=== PATIENT | male | born 1960 | race Caucasian/White ===

== ENCOUNTER 2024-12-21 01:07 | Observation (INO) | payer OTHER, SELFPAY ==
[2024-12-20 21:34] VITALS: BP 145/83
--- NOTE | 2024-12-20 22:21 | ED.GENMED ---
History of Present Illness
General
Chief Complaint: Abdominal Symptoms
Source: patient
Exam Limitations: none
Time Seen by Provider: 12/20/24 22:13
History of Present Illness
History of Present Illness:
64-year-old male presents with vomiting and intractable nausea for the past 3 days. He has a history of cannabis hyperemesis syndrome and he feels this is the same. He denies any significant pain. He has tried Zofran without relief. He denies a
fever. He just cannot keep anything down. He is concerned about dehydration. No chest pain or shortness of breath. No other complaints at this time
Past History
Past History
ED Past Medical History: None
ED Past Surgical History: None
Social History
Tobacco: Smoker
Alcohol: None
Personal: Single
Living: with family
Phy Exam
Physical Exam
Physical Exam:
General: Well-appearing male no acute respiratory distress
HEENT normal cephalic atraumatic mucosa dry neck is supple heart: Regular rate and rhythm
Lungs: Clear no wheeze abdomen is soft nontender nondistended
Extremities: No cyanosis or edema
Skin is warm no rash
Course
Orders/Labs/Results
Orders:
Orders
12/20/24 22:18
0.9% Sodium Chloride 1000 ml [Nss] 1,000 ml IV BOLUS
Haloperidol Lactate [Haldol] 2 mg IV NOW STA
12/20/24 22:25
Complete Blood Count/With Diff Urgent
Comprehensive Metabolic Panel Urgent
Lipase Urgent
12/20/24 22:31
EKG [Electrocardiogram (*1)] Urgent
Reason for Study: Fatigue / Weakness
EKG- Treatment ONCE
12/20/24 23:30
0.9% Sodium Chloride 1000 ml [Nss] 1,000 ml IV BOLUS
Diphenhydramine [Benadryl] 25 mg IV NOW STA
Prochlorperazine [Compazine] 10 mg IV NOW STA
Abnormal Lab Results
12/20/24
22:25
WBC 24.5 H 10^3/uL
(4.8-10.8)
Abs Immat Gran (auto) 0.2 H 10^3/uL
(0-0.05)
Absolute Neuts (auto) 22.3 H 10^3/uL
(1.4-6.5)
Absolute Lymphs (auto) 1.1 L 10^3/uL
(1.2-3.4)
Absolute Monos (auto) 0.9 H 10^3/uL
(0.1-0.6)
Immature Gran % 0.6 H %
(0-0.5)
Neutrophils % 91.2 H %
(42.2-75.2)
Lymphocytes % 4.3 L %
(20.5-51.1)
BUN 27 H mg/dl
(9-20)
Glucose 155 H mg/dl
(70-99)
Calcium 10.6 H mg/dl
(8.4-10.2)
Total Bilirubin 1.6 H mg/dl
(0.2-1.3)
Total Protein 8.8 H g/dl
(6.3-8.2)
Albumin 5.4 H g/dl
(3.5-5.0)
12/20/24 22:25
12/20/24 22:25
Vital Signs
Initial and Last Documented VS:
Initial Vital Signs
Pulse Resp BP Pulse Ox
72 16 145/83 98
12/20/24 21:34 12/20/24 21:34 12/20/24 21:34 12/20/24 21:34
Last Documented Vital Signs
Temp Pulse Resp BP Pulse Ox
99.7 F 65 18 143/74 99
12/20/24 22:45 12/20/24 23:33 12/20/24 23:15 12/20/24 23:33 12/20/24 23:15
MDM/Problems Addressed
Differential Diagnosis Includes:
Patient presents with intractable nausea and vomiting for 3 days. Has had this in the past and is similar to his prior episodes of cannabis hyperemesis. Abdomen exam is benign without any reproducible tenderness considered imaging however not
indicated at this point will check labs for electrolyte abnormality or signs of dehydration. Fluids ordered Zofran has not helped him. Will try IV Haldol.
*Pulse Oximetry
SaO2: 98
Oxygen Mode of Delivery: Room air
Patient hypoxic: no
*Critical Care Note
Total Time (30-74mins, 75-104mins- exclusive of procedures): Not Applicable
Update Note
Update Note:
EKG performed for QT monitoring EKG shows normal sinus rhythm with rate of 62 no ischemic changes QTc of 438
Patient's nausea unrelieved with Haldol initially subsequently given Compazine and Benadryl still cannot tolerate water. White blood cell count is 24,000 otherwise electrolytes look okay. Will admit for intractable nausea likely secondary to
cannabis use
ED Attending Note
-
Portions of this chart may have been created with voice recognition software.� Occasional wrong word or��sound alike� substitutions may have occurred due to the inherent limitations of voice recognition software.
Discharge Plan
Departure
Patient Disposition: Admit
Date of Disposition: 12/21/24
Time of Disposition: 00:13
Presentation/result/management discussed w/ accepting MD/DO: Hospitalist
Patient with high blood pressure during this ER visit?: No
Discharge Problem:
Intractable nausea
Prescriptions:
No Action
sucralfate 1 GM/10 ML suspension
1 gm PO QID Qty: 120 0RF
pantoprazole 40 MG tablet,delayed release (DR/EC)
40 mg PO BID Qty: 60 0RF
Referrals:
NONE,* [Family Provider, Internal Medicine]
Interventions
Interventions:
*Risk Screen - Suicide Last Done: 12/20/24 21:34
*General Assessment Last Done: 12/20/24 21:34
*Neglect/Abuse Screening Last Done: 12/20/24 21:34
*ED- Fall Risk Assessment Last Done: 12/20/24 21:34
*ED COVID-19 Vaccine History Last Done: 12/20/24 21:34
*ED Influenza Vaccine History Last Done: 12/20/24 21:34
LP-Ynsdmw-Makqrklnwq Assessment Last Done: 12/20/24 22:45
Discharge Date and Time
Print Language: ICELANDIC
[2024-12-20] MEDS: NSS 1000 IV ×2 (22:28→23:34)
[2024-12-20] MEDS: HALDOL 2 MG IV (22:36)
[2024-12-20 22:40] LABS: Hematocrit 44.0 % (39.0-52.0); Hemoglobin 15.3 g/dL (13.0-18.0); Mean Corp Hgb Conc. 34.8 g/dL (33.0-37.0); Mean Corpuscular Volume 87.1 fL (80.0-94.0); Platelet Count 263 10^3/uL (130-400); Red Cell Dist. Width 13.3 % (11.5-14.5)
[2024-12-20 22:55] LABS: Nucleated Red Blood Cells % 0 % (-)
[2024-12-20 22:57] LABS: ALT (SGPT) 26 U/L (0-50); AST (SGOT) 33 U/L (17-59); Albumin 5.4 g/dl (3.5-5.0); Alkaline Phosphatase 56 U/L (38-126); Blood Urea Nitrogen 27 mg/dl (9-20); Calcium 10.6 mg/dl (8.4-10.2); Carbon Dioxide 28 mmol/L (22-30); Chloride 100 mmol/L (98-107); Glucose 155 mg/dl (70-99); Lipase 298 U/L (23-300); Potassium 3.5 mmol/L (3.5-5.1); Sodium 139 mmol/L (135-145); Total Protein 8.8 g/dl (6.3-8.2); eGFR > 60.00
[2024-12-20 23:33] VITALS: BP 143/74
[2024-12-20] MEDS: COMPAZINE 10 MG IV (23:34)
[2024-12-20] MEDS: BENADRYL 25 MG IV (23:34)
--- NOTE | 2024-12-21 00:59 | HPS.HSE ---
Family Physician
-
Family Physician: * NONE
Chief Complaint
-
N/V
History of Present Illness
Patient is a 64y M with PMH significant for GERD, esophageal stricture who presents to ED complaining of N/V. Patient states that his symptoms started about 3 days ago. He reports intractable N/V with emesis any time he tries to eat or dirnk.
He reports burning pain in the 'esophagus'. He notes that he has also induced emesis intentionally in an effort to alleviate his symptoms. He took Zofran at home without improvement.
Patient has a prior history of GERD, esophagitis and esophageal stricture.
He also has a history of cannabinoid hyperemesis.
Patient admits to continued daily marijuana use.
Medical History
Past Medical History
Past Medical History: Reports Other
Additional Past Medical History:
GERD / Esophagitis
Cannabinoid Hyperemesis
Past Surgical History: Reports Other
Additional Past Surgical History:
Vocal Cord Surgery
Social History
Tobacco: Non-smoker
Alcohol: Occasional (Rarely.)
Drug: Marijuana (Daily use.)
Family History
Family History: Not pertinent
Allergies / Home Medications
Allergies reflects when Allergies were last updated in [facility].
Home Medications with original date entered in [facility]
Allergy/Medication List:
Allergies
Allergy/AdvReac Type Severity Reaction Status Date / Time
No Known Allergies Allergy Verified 12/20/24 21:37
Home Medications
No Meds [No Current Medications] 12/21/24
Review of Systems
-
History Source: Patient
A 12 point ROS was completed and negative except as noted: Yes
Constitutional: Reports Fatigue; Denies Fever or Chills
EENT: Reports Sore Throat
Respiratory: Denies Cough or Trouble Breathing
Cardiac: Reports Chest Pain; Denies Palpitations
Abdomen/GI: Reports Abdominal Pain, Nausea and Vomiting; Denies Diarrhea, Bloody Stools or Black Stools
: Denies Dysuria or Flank Pain
Musculoskeletal: Denies Joint Pain or Edema
Neurological: Denies Dizzy or Headache
Psych: Denies Depression or Anxiety
Physical Exam
Vital Signs
Vital Signs
Temp Pulse Resp BP Pulse Ox
99.7 F 65 18 143/74 99
12/20/24 22:45 12/20/24 23:33 12/20/24 23:15 12/20/24 23:33 12/20/24 23:15
Physical Exam
General: Other (64y M in mild distress due to nausea.)
HEENT: Other (Dry MM. Neck supple.)
Respiratory: Clear; No Wheezes, Rales or Rhonchi
Cardiac: S1/S2 and Regular Rhythm; No Murmur
GI: Other (Soft, no focal tenderness / rebound / guarding. Pos BS.)
Musculoskeletal: No Clubbing, No Cyanosis and No Edema
Neuro: AO x 3
Laboratory Results
-
12/20/24 22:25
12/20/24 22:25
Laboratory Results
Total Bilirubin 1.6 mg/dl (0.2-1.3) H 12/20/24 22:25
AST 33 U/L (17-59) 12/20/24 22:25
ALT 26 U/L (0-50) 12/20/24 22:25
Alkaline Phosphatase 56 U/L (38-126) 12/20/24 22:25
Lipase 298 U/L (23-300) 12/20/24 22:25
Impression/Plan
-
A/P: Patient is a 64y M with PMH significant for GERD / esophagitis and marijuana use disorder who presents to ED complaining of intractable N/V x 3 days.
Cannabinoid Hyperemesis
Leukocytosis secondary to the above
- Observe overnight for further evaluation and treatment.
- Supportive care, antiemetics, IVFs, etc.
- IV PPI.
- Follow for clinical improvement.
- Patient counseled on marijuana cessation to prevent future episodes.
GERD / Esophagitis
- Likely exacerbated by repeated emesis.
- Not on any maintenance therapy, PPI, etc at home.
- Consider GI evaluation if symptoms do not improve with supportive care.
DVT Prophylaxis: SCDs
Code Status: Full
[2024-12-21] MEDS: REGLAN 10 MG IV ×2 (01:32→22:02)
[2024-12-21] MEDS: LR 1000 IV ×4 (01:32→19:27)
[2024-12-21 01:39] VITALS: BMI 19.5
[2024-12-21] MEDS: BENADRYL 25 MG IV ×3 (02:30→23:28)
[2024-12-21] MEDS: ZOFRAN 4 MG IV (02:31)
[2024-12-21] MEDS: VALIUM INJECTION 2.5 MG IV (03:56)
[2024-12-21 06:40] LABS: Hematocrit 35.0 % (39.0-52.0); Hemoglobin 12.3 g/dL (13.0-18.0); Mean Corp Hgb Conc. 35.1 g/dL (33.0-37.0); Mean Corpuscular Volume 90.4 fL (80.0-94.0); Platelet Count 206 10^3/uL (130-400); Red Cell Dist. Width 13.3 % (11.5-14.5)
[2024-12-21 06:57] LABS: Blood Urea Nitrogen 19 mg/dl (9-20); Calcium 8.7 mg/dl (8.4-10.2); Carbon Dioxide 28 mmol/L (22-30); Chloride 108 mmol/L (98-107); Estimated Creatinine Clearance 81 ml/min; Glucose 129 mg/dl (70-99); Magnesium 1.7 mg/dl (1.6-2.3); Potassium 3.3 mmol/L (3.5-5.1); Sodium 138 mmol/L (135-145); eGFR > 60.00
[2024-12-21 07:00] VITALS: BP 114/61
--- NOTE | 2024-12-21 07:43 | W.PN.HOSP.TC ---
Today's Communication/Plan
-
Continue monitoring on telemetry
See plan
Assessment / Plan
Assessment / Plan
Physical Exam
General: Not in acute distress
HEENT: Normocephalic
Respiratory: Clear to Auscultation Bilaterally
Cardiac: S1/S2 and Regular Rhythm
GI: Other (Soft, no focal tenderness / rebound / guarding. Pos BS.)
Musculoskeletal: No Cyanosis and No Edema
Neuro: AAO x 3
Assessment/Plan
64 y/o male with past medical history significant for daily Marijuana use, cannabinoid hyperemesis, GERD, esophagitis and esophageal stricture who presented to [facility] ED complaining of nausea and vomiting. Patient states that his symptoms started
about 3 days prior to presentation. He reported intractable nausea/vomiting with emesis any time he attempted to eat or drink. He reported burning pain in his 'esophagus.' Patient noted that he has also induced emesis intentionally in an effort to
alleviate his symptoms. He took Zofran at home without improvement.
Cannabinoid Hyperemesis
Leukocytosis secondary to the above
- Supportive care, antiemetics, IVFs, etc.
- IV PPI.
- Follow for clinical improvement.
- Patient counseled on marijuana cessation to prevent future episodes.
- Monitor EKG QTc while giving Haldol when needed, can also try Benadryl, Compazine, Reglan
- Try to avoid benzodiazepines or opioids
GERD / Esophagitis
History of Esophageal Stricture
- Likely exacerbated by repeated emesis.
- Not on any maintenance therapy, PPI, etc at home.
- Consider GI evaluation if symptoms do not improve with supportive care.
DVT Prophylaxis: SCDs
Code Status: Full Code
Anticipated Discharge: 24 - 48 hours
Subjective/Interval History
-
Date of Service: December 21, 2024
Patient was seen and examined. He continued with nausea and vomiting as well as heartburn pain.
Objective Data
-
Labs:
Laboratory Results
12/20/24 12/21/24
22:25 06:30
WBC 24.5 H 19.3 H
Hgb 15.3 12.3 L
Hct 44.0 35.0 L
Plt Count 263 206 D
Sodium 139 138
Potassium 3.5 3.3 L
Chloride 100 108 H
Carbon Dioxide 28 28
BUN 27 H 19
Creatinine 0.9 0.8
Glucose 155 H 129 H
Calcium 10.6 H 8.7 D
Total Bilirubin 1.6 H
AST 33
ALT 26
Alkaline Phosphatase 56
Vital Signs:
Vital Signs
Temp Pulse Resp BP Pulse Ox
98.5 F 81 26 143/74 98
12/21/24 02:30 12/21/24 01:30 12/21/24 01:30 12/20/24 23:33 12/21/24 02:15
[2024-12-21] MEDS: PROTONIX IV 40 MG IV (07:48)
[2024-12-21] MEDS: TUMS CHEWABLE TABLET 200 MG PO ×2 (07:48→16:24)
--- NOTE | 2024-12-21 09:27 | PTCARENOTE ---
pt aaox3. angry that he didn't sleep well last night. nausea improved. benadryl given as ordered pt states zofran does not do anything pt states he is having burning in his esop. made aware. tums given and protonix ordered. pt refusing ivf
because of the noise of the pump. pt does not want to take anything oral due to heartburn. md made aware.
[2024-12-21] MEDS: KCL 260 MEQ IV (09:45)
--- NOTE | 2024-12-21 10:29 | CM ---
CM reviewed chart and attempted to talk with patient at bedside x2 but he was asleep
Spoke with his brother Crescencio Bryant over the phone [phone]
OBS form explained to brother at 10:20 am
Lives in a 2nd floor apartment alone : [address]
Independent with [employer]. Works from home
no DME
PCP per brother not sure of the name but has one in [facility]
RX plan yes
Pharmacy [facility] in [place]
no hx of VN nor SNF
DCP is to return back home when cleared
CM to follow up with any discharge planning needs
[2024-12-21] MEDS: MAGNESIUM SULFATE 100 IV (12:02)
[2024-12-21 15:42] VITALS: BP 119/57; BMI 19.2
--- NOTE | 2024-12-21 15:45 | PTCARENOTE ---
patient arrived to unit. VSS. AAOx4, patient tolerated walking from stretcher to bed. Free from falls. Patient in NAD. call zambrano in reach. safety maintained. will continue to monitor. Patient requesting tums. MD Isbell notified. new orders to be
placed.
[2024-12-21 23:20] VITALS: BP 160/71
[2024-12-22] MEDS: LR 1000 IV ×2 (02:04→08:54)
[2024-12-22 07:06] VITALS: BP 143/63
[2024-12-22 08:00] LABS: Hematocrit 37.1 % (39.0-52.0); Hemoglobin 13.0 g/dL (13.0-18.0); Mean Corp Hgb Conc. 35.0 g/dL (33.0-37.0); Mean Corpuscular Volume 87.7 fL (80.0-94.0); Platelet Count 203 10^3/uL (130-400); Red Cell Dist. Width 13.0 % (11.5-14.5)
--- NOTE | 2024-12-22 08:48 | W.PN.HOSP.TC ---
Today's Communication/Plan
-
Was doing better, but then developed nausea again. He states he cannot go home yet.
Full Liquids diet and supportive medications.
Assessment / Plan
Assessment / Plan
Physical Exam
General: Not in acute distress
HEENT: Normocephalic
Respiratory: Clear to Auscultation Bilaterally
Cardiac: S1/S2 and Regular Rhythm
GI: Other (Soft, no focal tenderness / rebound / guarding. Pos BS.)
Musculoskeletal: No Cyanosis and No Edema
Neuro: AAO x 3
Assessment/Plan
64 y/o male with past medical history significant for daily Marijuana use, cannabinoid hyperemesis, GERD, esophagitis and esophageal stricture who presented to [facility] ED complaining of nausea and vomiting. Patient states that his symptoms started
about 3 days prior to presentation. He reported intractable nausea/vomiting with emesis any time he attempted to eat or drink. He reported burning pain in his 'esophagus.' Patient noted that he has also induced emesis intentionally in an effort to
alleviate his symptoms. He took Zofran at home without improvement.
Cannabinoid Hyperemesis
Leukocytosis secondary to the above
- Diet advanced to full liquids
- IV PPI.
- Follow for clinical improvement.
- Patient counseled on marijuana cessation to prevent future episodes.
- Monitor EKG QTc while giving Haldol when needed, can also try Benadryl, Compazine, Reglan
- Try to avoid benzodiazepines or opioids
GERD / Esophagitis
History of Esophageal Stricture
- Likely exacerbated by repeated emesis.
- Not on any maintenance therapy, PPI, etc at home.
- Consider GI evaluation if symptoms do not improve with supportive care.
DVT Prophylaxis: SCDs
Code Status: Full Code
If patient can't tolerate diet, and needs iv fluids and IV Zofran over the weekend, then will need to be Inpatient status.
Anticipated Discharge: Within 24 hours
Subjective/Interval History
-
Date of Service: December 22, 2024
Patient was seen and examined. He was doing better this morning, but later developed nausea again.
Objective Data
-
Labs:
Laboratory Results
12/22/24 12/22/24
07:44 08:41
WBC 14.8 H
Hgb 13.0
Hct 37.1 L
Plt Count 203
Sodium Cancelled Pending
Potassium Cancelled Pending
Chloride Cancelled Pending
Carbon Dioxide Cancelled Pending
BUN Cancelled Pending
Creatinine Cancelled Pending
Glucose Cancelled Pending
Calcium Cancelled Pending
Total Bilirubin Cancelled Pending
AST Cancelled Pending
ALT Cancelled Pending
Alkaline Phosphatase Cancelled Pending
Vital Signs:
Vital Signs
Temp Pulse Resp BP Pulse Ox
98.6 F 58 16 143/63 100
12/22/24 07:06 12/22/24 07:06 12/22/24 07:06 12/22/24 07:06 12/22/24 07:06
I&O
12/21/24 12/22/24 12/23/24
06:59 06:59 06:59
Intake Total 2390 / 2390
Output Total 480 / 480
Balance 1909
[2024-12-22] MEDS: NSS (PRESERVATIVE FREE) 10 ML IV (08:50)
[2024-12-22] MEDS: REGLAN 10 MG IV (08:51)
[2024-12-22] MEDS: PROTONIX IV 40 MG IV (08:51)
[2024-12-22 09:27] LABS: ALT (SGPT) 26 U/L (0-50); AST (SGOT) 28 U/L (17-59); Albumin 3.8 g/dl (3.5-5.0); Alkaline Phosphatase 46 U/L (38-126); Blood Urea Nitrogen 12 mg/dl (9-20); Calcium 8.7 mg/dl (8.4-10.2); Carbon Dioxide 26 mmol/L (22-30); Chloride 104 mmol/L (98-107); Estimated Creatinine Clearance 91 ml/min; Glucose 105 mg/dl (70-99); Magnesium 2.1 mg/dl (1.6-2.3); Potassium 3.6 mmol/L (3.5-5.1); Sodium 137 mmol/L (135-145); Total Protein 6.9 g/dl (6.3-8.2); eGFR > 60.00
[2024-12-22] MEDS: BENADRYL 25 MG IV (11:55)
--- NOTE | 2024-12-22 12:46 | CM ---
Per hospitalist, plan to d/c patient home today
No needs at this time
Plan: Home, no needs
[2024-12-22] MEDS: CARAFATE SUSPENSION PO ×2 (13:08→17:34)
[2024-12-22 15:07] VITALS: BP 145/72
[2024-12-22] MEDS: TORADOL 15 MG IV (15:58)
[2024-12-22] MEDS: PROTONIX 40 MG PO (20:36)
[2024-12-22 23:00] VITALS: BP 110/61
[2024-12-23 08:10] VITALS: BP 112/69
--- NOTE | 2024-12-23 08:17 | W.PN.HOSP.TC ---
Today's Communication/Plan
-
Discharge today
Assessment / Plan
Assessment / Plan
Physical Exam
General: Not in acute distress
HEENT: Normocephalic
Respiratory: Clear to Auscultation Bilaterally
Cardiac: S1/S2 and Regular Rhythm
GI: Other (Soft, no focal tenderness / rebound / guarding. Pos BS.)
Musculoskeletal: No Cyanosis and No Edema
Neuro: AAO x 3
Assessment/Plan
64 y/o male with past medical history significant for daily Marijuana use, cannabinoid hyperemesis, GERD, esophagitis and esophageal stricture who presented to [facility] ED complaining of nausea and vomiting. Patient states that his symptoms started
about 3 days prior to presentation. He reported intractable nausea/vomiting with emesis any time he attempted to eat or drink. He reported burning pain in his 'esophagus.' Patient noted that he has also induced emesis intentionally in an effort to
alleviate his symptoms. He took Zofran at home without improvement.
Cannabinoid Hyperemesis
Leukocytosis secondary to the above
- Diet advanced to regular and patient is tolerating it well today
- PO PPI BID on discharge with close outpatient GI follow-up.
- Follow for clinical improvement.
- Patient counseled on marijuana cessation to prevent future episodes.
- Monitor EKG QTc while giving Haldol when needed, can also try Benadryl, Compazine, Reglan
- Try to avoid benzodiazepines or opioids
GERD / Esophagitis
History of Esophageal Stricture
- Likely exacerbated by repeated emesis.
- Not on any maintenance therapy, PPI, etc at home.
- Outpatient GI evaluation
DVT Prophylaxis: SCDs. Lovenox.
Code Status: Full Code
More than 30 minutes spent in discharge including
Final examination of the patient
Summarizing hospital stay
Instructions for continuing care to all relevant caregivers
Preparation of discharge records, prescriptions, and referral forms
Total time spent (in minutes): 36
Anticipated Discharge: Today
Subjective/Interval History
-
Date of Service: December 23, 2024
Patient was seen and examined. He reported feeling good today, tolerating diet, and he said he wants to go home today.
Objective Data
-
Labs:
Laboratory Results
12/23/24
06:00
WBC Pending
Hgb Pending
Hct Pending
Plt Count Pending
Sodium Pending
Potassium Pending
Chloride Pending
Carbon Dioxide Pending
BUN Pending
Creatinine Pending
Glucose Pending
Calcium Pending
Total Bilirubin Pending
AST Pending
ALT Pending
Alkaline Phosphatase Pending
Vital Signs:
Vital Signs
Temp Pulse Resp BP Pulse Ox
98.4 F 63 16 112/69 99
12/23/24 08:10 12/23/24 08:10 12/23/24 08:10 12/23/24 08:10 12/23/24 08:10
I&O
12/22/24 12/23/24 12/24/24
06:59 06:59 06:59
Intake Total 2390 / 2390 400 / 400
Output Total 480 / 480
Balance 1909 / 191 400 / 400
[2024-12-23] MEDS: PROTONIX 40 MG PO (08:20)
[2024-12-23] MEDS: CARAFATE SUSPENSION 1 GM PO ×2 (08:20→12:48)
[2024-12-23 10:50] LABS: Hematocrit 40.0 % (39.0-52.0); Hemoglobin 14.1 g/dL (13.0-18.0); Mean Corp Hgb Conc. 35.3 g/dL (33.0-37.0); Mean Corpuscular Volume 88.9 fL (80.0-94.0); Platelet Count 241 10^3/uL (130-400); Red Cell Dist. Width 12.7 % (11.5-14.5)
[2024-12-23 11:35] LABS: Blood Urea Nitrogen 17 mg/dl (9-20); Calcium 9.2 mg/dl (8.4-10.2); Carbon Dioxide 30 mmol/L (22-30); Chloride 103 mmol/L (98-107); Estimated Creatinine Clearance 80 ml/min; Glucose 98 mg/dl (70-99); Potassium 3.5 mmol/L (3.5-5.1); Sodium 136 mmol/L (135-145); eGFR > 60.00
--- NOTE | 2024-12-23 13:49 | W.DCSUMMARY ---
Discharge Summary
Discharge Data
Date of Admission: 12/21/24
Date of Discharge: 12/23/24
Total time spent discharging patient (in min): 36
-
Pending Results: No
Hospital Course
64 y/o male with past medical history significant for Marijuana use, GERD and esophageal stricture who presented to [facility] ED complaining of nausea and vomiting. Patient was started on proton pump inhibitor due to heartburn symptoms and his vomiting.
Patient was also started on intravenous fluids. Leukocytosis was suspected secondary to stress/reactive to his vomiting and poor PO intake; there were no signs or symptoms of any infection. Patient was also given Haldol, Benadryl and Compazine given
his Cannabinoid Hyperemesis Syndrome. Patient's symptoms improved and he was feeling well. He was tolerating a diet well. He was stable for discharge.
Discharge Plan
-
Patient Disposition: Home (Routine Discharge)
Discharge Diagnosis/Procedures: Cannabinoid Hyperemesis
Leukocytosis secondary to the above
GERD / Esophagitis
History of Esophageal Stricture
Condition: Good
Diet: As tolerated
Blood Work: CBC, BMP and Magnesium with primary care provider in 2 to 3 days
Activity Restrictions/Additional Instructions:
Please see a hot air furnace installer and repairer in 1 to [address] weeks. You can call Dr. Garcia's office or you can see your other hot air furnace installer and repairer that we discussed.
Instructions: Pantoprazole, Sucralfate
Referrals:
NONE,* [Family Provider, Internal Medicine]
Sarah Garcia MD [Active, Gastroenterology]
Prescriptions:
New
sucralfate 100 mg/mL Suspension
1 g PO AC 14 Days Qty: 420 0RF
pantoprazole 40 mg Tablet,Delayed Release (/Ec)
40 mg PO BID 14 Days Qty: 28 0RF
Discharge Orders:
Discharge Patient (As Directed); Ordered 12/23/24
Ordered By: Kervin Isbell
Discharge Date and Time
Discharge Date/Time: 12/23/24 14:42
Print Language: MALTESE
--- NOTE | 2024-12-23 14:23 | CM ---
Plan: discharge to home today; no needs. Patient reported that family member will provide transport home;
[2024-12-23 14:26] VITALS: BP 126/73
== END 2024-12-23 14:42 | disposition home or self-care (01) ==
LOC: 4 WEST ACU 01:07
PROVIDERS: Physician Assistant; ADMITTING PHYSICIAN Hospitalist; ATTENDING PHYSICIAN Hospitalist; EMERGENCY PHYSICIAN Emergency Medicine
DX: R11.16 Cannabis hyperemesis syndrome (principal); F17.200 Nicotine dependence, unspecified, uncomplicated; D72.829 Elevated white blood cell count, unspecified; F12.90 Cannabis use, unspecified, uncomplicated; K21.00 Gastro-esophageal reflux disease with esophagitis, without bleeding
CPT/HCPCS: 80048; 80053; 80306; 83690; 83735; 84100; 85025; 85027; 93005; 96361; 96374; 96375; 99285; G0378